=== PATIENT | female | born 2000 | race African-American/Black ===

== ENCOUNTER 2019-04-22 22:37 | Emergency (ER) | payer SELFPAY ==
[~2019-04-22] VITALS: Ht 167.7 cm; Wt 62.5 kg
--- NOTE | 2019-04-22 23:05 | NUR ---
THIS RN WAS IN THE ROOM WHEN THE DOCTOR DID THE RECTAL EXAM.
--- NOTE | 2019-04-22 23:12 | ED GI ---
General Chief Complaint: Rect Problems Stated Complaint: ANAL BLEEDING Nursing Triage Note: PT. REPORTED SHE HAS BRIGHT RED BLOOD FROM HER RECTUM AFTER WASHING THAT SHE HAS HAD FOR 2-3 WEEKS. Source of Information: Patient Exam Limitations: No Limitations History of Present Illness Date Seen by Provider: Apr 22, 2019 Time Seen by Provider: 22:50 Initial Comments The patient is a 18-year-old female who presents for evaluation of painless bright red blood from rectum over the last 2-3 weeks intermittently noted with all movements. She reports that her stool has a normal appearance but that she has a small amount of blood coming from her rectum after having a bowel movement. She denies any rectal pain or fever or she denies any rectal trauma or anal sex. She denies any pelvic discharge or rectal discharge. She denies any abdominal discomfort. She is alert and oriented 4, calm, and appears to be in no distress. Timing/Duration: Other (2-3 weeks) Severity/Quality: Mild Location: Other (anal) Radiation: No Radiation Activities at Onset: None Associated Symptoms: Denies Symptoms Allergies and Home Medications Allergies Coded Allergies: No Known Drug Allergies (Unverified , 04/22/19) Patient Home Medication List Home Medication List Reviewed: Yes Review of Systems Review of Systems Constitutional: no symptoms reported EENTM: No Symptoms Reported Respiratory: No Symptoms Reported Cardiovascular: No Symptoms Reported Gastrointestinal: Rectal Bleeding (minor anal bleeding) Genitourinary: No Symptoms Reported Musculoskeletal: no symptoms reported Skin: no symptoms reported Psychiatric/Neurological: No Symptoms Reported Endocrine: No Symptoms Reported Hematologic/Lymphatic: No Symptoms Reported All Other Systems Reviewed Negative Unless Noted: Yes Past Dfcugdr-Kjjcns-Pvukid Hx Past Med/Social Hx: Reviewed Nursing Past Med/Soc Hx Patient Social History Recent Foreign Travel: No Contact w/Someone Who Travel: No Recent Infectious Disease Expo: No Recent Hopitalizations: No Ebola Symptoms: Denies Symptoms Listed Physical Abuse: No Sexual Abuse: No Mistreated: No Fear: No Seasonal Allergies Seasonal Allergies: No Past Medical History Surgeries: No Respiratory: No Cardiac: No Neurological: No Genitourinary: No Gastrointestinal: No Musculoskeletal: No Endocrine: No HEENT: No Cancer: No Psychosocial: No Integumentary: No Blood Disorders: No Physical Exam Vital Signs Vital Signs - First Documented 04/22/19 22:46 Temp 36.6 Pulse 99 Resp 18 B/P (MAP) 115/73 Pulse Ox 97 O2 Delivery Room Air Capillary Refill : Height/Weight/BMI Height: '" Weight: lbs. oz. 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 There is no bleeding noted at this time. There is no sign of perirectal abscess or concern for sexually transmitted in fection based on the appearance. Advised the patient to follow up with GI for colonoscopy and further management. The patient expresses verbal understanding and agreement with the plan and is stable for discharge. Departure Impression Primary Impression: Anal fissure Additional Impression: Hemorrhoid Disposition: 01 HOME, SELF-CARE Condition: Stable Departure-Patient Inst. Decision time for Depature: 23:15 Referrals: LINDEN SANZ DO Patient Instructions: Anal Fissure, Hemorrhoids Add. Discharge Instructions: Follow-up with your PCP or Dr. Sanz in the next 1-2 days. Return to the emergency Department immediately for new or worsening symptoms. Take the pr escribed medicine as directed. Scripts Docusate Sodium (Colace) 100 Mg Capsule 100 MG PO DAILY for 30 Days, #30 CAP Prov: KESHIA ROWE DO 04/22/19 KESHIA ROWE DO Apr 22, 2019 23:11 POS
[2019-04-22] MEDS ORDERED: DOCU-143 PO (23:17)
== END 2019-04-22 23:20 | disposition home or self-care (01) ==
LOC: ER FS 22:37
DX: K60.2 Anal fissure, unspecified (principal); K64.9 Unspecified hemorrhoids
CPT/HCPCS: 99282